=== PATIENT | female | born 1975 | race Hispanic/Latino ===

== ENCOUNTER 2021-04-13 16:49 | Emergency (ER) | payer SELFPAY ==
--- NOTE | ~2021-04-13 | XR_ITS ---
EXAMINATION: XR chest 2V 04/13/2021 21:19 INDICATION: Dizziness PROCEDURE: 2 view chest COMPARISON: No prior studies for comparison. FINDINGS: The lungs are clear. The cardiomediastinal silhouette is within normal limits. There are no pleural effusions. There is no pneumothorax suspected. IMPRESSION: 1: NO ACUTE CARDIOPULMONARY DISEASE. Reviewed, dictated and finalized at location A. ER DELIVERER
--- NOTE | ~2021-04-13 | CT_ITS ---
EXAMINATION: CT BRAIN W/O DATE: 04/13/2021 21:16 INDICATION: Dizziness and hypertension TECHNIQUE: Computed tomography (CT) of the head was performed without intravenous contrast. The dose- length product was 605.33 mGy-cm. Automated exposure control and iterative reconstruction technique w ere employed. COMPARISON: No prior studies for comparison. FINDINGS: Normal brain parenchymal volume for age. Normal arguello-white differentiation. No acute intrac ranial hemorrhage, infarction, mass or mass effect. No ventriculomegaly or midline shift. Midline sagittal images demonstrate a normal corpus callosum, c raniovertebral junction and sella turcica. Basilar cisterns are patent. Paranasal sinuses and mastoids are pneumatized. No depressed skull fractures. IMPRESSION: 1. No acute intracranial abnormality. Reviewed, dictated and finalized at location A. [facility]
[2021-04-13 17:05] VITALS: BP 155/99; PULSE 88; RESP 17; TEMP 36.4; O2SAT 100
--- NOTE | 2021-04-13 17:09 | ECG_ITS ---
Measurements Intervals [place] Rate: 82 P: 24 VT: 126 QRS: 20 QRSD: 88 T: -5 QT: 373 QTc: 436 Interpretive Statements SINUS RHYTHM NONSPECIFIC T-WAVE ABNORMALITY- ANTEROLAT/INF LEADS BASELINE ARTIFACT- I, III BORDERLINE ECG Electronically Signed On 04-13-2021 19:23:53 CABLE COVERER by Nazario Mccallum D.O.
[2021-04-13 20:28] VITALS: BP 182/99; PULSE 85; RESP 20; O2SAT 100
--- NOTE | 2021-04-13 21:03 | ED.RECABL ---
HPI - Recheck/Abnormal Lab/Rx General Chief Complaint: Recheck/Abnormal Lab/Rx Stated Complaint: High Blood Pressures x1 month Time Seen by Provider: 04/13/21 21:00 Source: patient and family Mode of arrival: ambulatory Limitations: no limitations History of Present Illness HPI narrative: Patient is a 46-year-old female with a history of hypertension, dyslipidemia, presenting from [facility] where she was seen by a nurse practitioner that told her her blood pressure was elevated and she needed to come to the emergency department. Patient denies any headache, vision changes, chest pain, shortness of breath, dizziness. No nausea or vomiting. Patient states she feels well. Patient states that in the past she was on a blood pressure medication before she moved to the area, states that that was over a year and a half ago. She does not recall the name of the medication that she used to take. Patient denies history of smoking. Denies other medical history. The use of a assembling motor builder was used to obtain the history. Spouse is also at bedside. Related Data Allergies Allergy/AdvReac Type Severity Reaction Status Date / Time No Known Allergies Allergy Verified 04/13/21 22:25 Review of Systems Review of Systems: CONSTITUTIONAL: Denies fever, chills, or sweats. EYES: Denies visual changes, redness, or discharge. ENT: Denies rhinorrhea, congestion, sore throat, or otalgia. CARDIOVASCULAR: Denies chest pain, palpitations, or edema. RESPIRATORY: Denies cough or dyspnea. GASTROINTESTINAL: Denies abdominal pain, nausea, vomiting, or diarrhea. GENITOURINARY: Denies dysuria or hematuria. SKIN: Denies rash or itching. MUSCULOSKELETAL: Denies back pain, joint pain, or myalgia. NEUROLOGIC: Denies headache, numbness, or weakness. [facility] Social History Social History (Updated 04/13/21 @ 21:35 by Parul Franco MD) Smoking status: Never smoker Alcohol intake: never Substance use: never Living arrangements: with family Gender identity (if verbalized by the patient): Female Exam Narrative: GENERAL: Awake, alert, conversant HEAD: Normocephalic, atraumatic. EYES: PERRLA and EOMI. ENT: Nares clear, no rhinorrhea or epistaxis. Mucous membranes moist. NECK: Supple. CHEST: No respiratory distress, breathing even and non labored HEART: Regular rate, sinus rhythm ABDOMEN:Non distended, non tender EXTREMITIES: Normal range of motion. No edema. SKIN: Warm, dry, no rash. NEURO:No focal deficits. Alert and oriented x3. Finger to nose intact bilaterally. EOMs intact without nystagmus. No facial droop/asymmetry noted bilaterally. Grimace intact. Intact sensation in face. Hearing intact bilaterally. Shoulder shrug intact. Strength 5/5 bilateral upper extremities. Strength 5/5 bilateral lower extremities. Reflexes 2+ patellar. Heel to king intact bilaterally. Ambulatory exam deferred. Course Vital Signs Vital signs: Vital Signs Temperature 36.4 C 04/13/21 17:05 Pulse Rate 88 04/13/21 17:05 Respiratory Rate 17 04/13/21 17:05 Blood Pressure 155/99 H 04/13/21 17:05 Pulse Oximetry 100 04/13/21 17:05 Temperature 36.4 C 04/13/21 17:05 Pulse Rate 72 04/13/21 21:56 Respiratory Rate 18 04/13/21 21:56 Blood Pressure 176/102 H 04/13/21 21:56 Pulse Oximetry 100 04/13/21 21:56 MDM - Recheck/Abnormal Lab/Rx MDM Narrative Medical decision making narrative: Patient presenting for evaluation of elevated blood pressure is found at outpatient clinic setting today. Patient has a history of this but has not had refills for her blood pressure medication since moving to the area. Patient denying any significant symptoms of chest pain, dizziness, headache, vision changes. EKG without acute ischemic changes. Blood pressure is somewhat labile, systolics ranging in the 150s to 180s. Neurological exam is normal. No concern for posterior stroke. CT head is negative. Chest x-ray is normal. Troponin is not
[2021-04-13] MEDS: SODIUM CHLORIDE 0.9% IV 1,000 ML 999 ML IV CONT (21:53)
[2021-04-13 21:56] VITALS: BP 176/102; PULSE 72; RESP 18; O2SAT 100
[2021-04-13] MEDS: hydroCHLOROthiazide 25 MG TABLET PO (21:59)
[2021-04-13 22:00] LABS: Basophils Absolute Auto 0.1 K/mm3 (0.0-0.1); Basophils Percent Auto 0.6 % (0.2-1.2); Eosinophils Percent Auto 0.5 % (0-4.4); Hematocrit 39.6 % (37.0-47.0); Hemoglobin 13.1 g/dL (12.0-15.0); Immature Granulocyte Absolute 0.02 K/mm3 (0.00-0.031); Immature Granulocyte Percent A 0.2 % (0-0.5); Lymphocytes Absolute Auto 2.71 K/mm3 (0.9-3.2); Mean Corpuscular HGB Conc 33.1 g/dl (32-36); Mean Corpuscular Hemoglobin 29.6 pg (26-34); Mean Corpuscular Volume 89.4 fl (80-100); Mean Platelet Volume 10.9 fl (7.4-10.4); Monocytes Absolute Auto 0.5 K/mm3 (0.1-0.6); Monocytes Percent Auto 6.1 % (2.6-8.5); Neutrophils Absolute Auto 4.9 K/mm3 (1.3-6.7); Neutrophils Percent Auto 59.6 % (45.5-73.1); Platelet Count Result 240 k/mm3 (150-375); Red Blood Count 4.43 M/mm3 (4.2-5.4); White Blood Count 8.2 K/mm3 (4.5-10.0)
[2021-04-13 22:09] LABS: Add Urine Microscopic? YES; Appearance Urine Cloudy (Clear); Bacteria Urine Trace /hpf; Bilirubin Urine Negative (Negative); Blood Urine Negative (Negative); Budding Yeast Urine Present /hpf; Color Urine Yellow (Yellow); Glucose Urine UA Negative (Negative); Ketones Urine Negative (Negative); Leukocyte Esterase Ur Negative LEU/UL (Negative); Mucus Urine Rare /lpf; Nitrate Urine Negative (Negative); Protein Urine Negative (Negative); RBC Urine 0-2 /hpf (0-2); Specific Grav Ur 1.012 (1.001-1.035); Squamous Epithelial Cell Urine Few /hpf (Few); Urobilinogen Urine Negative mg/dL (<2.0); WBC Urine 0-3 /hpf
[2021-04-13 22:10] LABS: Anion Gap 10 mmol/L (8-16); Blood Urea Nitrogen 15 mg/dL (7-17); Calcium 9.8 mg/dL (8.4-10.2); Carbon Dioxide 23 mmol/L (22-30); Chloride 104 mmol/L (98-107); Estimated CRCL calculation 107 ml/min; Estimated Glomerular Filt Rate > 60; Glucose 101 mg/dL (65-110); Potassium 4.3 mmol/L (3.4-5.0); Sodium 137 mmol/L (137-145)
[2021-04-13 22:22] LABS: Troponin I < 0.012 ng/mL (0.000-0.034)
[2021-04-13 22:31] VITALS: BP 168/102; PULSE 64; RESP 18; O2SAT 100
[2021-04-13 23:44] VITALS: BP 174/95; PULSE 78; RESP 18; O2SAT 98
== END 2021-04-13 23:54 | disposition home or self-care (01) ==
LOC: ANHED 22:58
PROVIDERS: Emergency Provider Emergency Medicine
DX: I10 Essential (primary) hypertension (principal)
CPT/HCPCS: 36415; 70450; 71046; 80048; 81001; 84484; 85025; 93005; 96360; 99284; A9270; J7030